=== PATIENT | male | born 1965 | race Caucasian/White ===

== ENCOUNTER 2021-04-04 08:56 | Emergency (ER) | payer BC ==
[2021-04-04] MEDS ORDERED: ASPIRIN 81 MG PO STA (09:10)
[2021-04-04] MEDS ORDERED: LABETALOL SYRINGE 5 MG/ML IVP STA (09:11)
--- NOTE | 2021-04-04 09:14 | ED ---
General Adult HPI - General Chief complaint: Recheck/Abnormal Lab/Rx Stated complaint: High BP Time Seen by Provider: 04/04/21 09:03 Source: patient, RN notes reviewed Mode of arrival: ambulatory Limitations: no limitations - History of Present Illness Initial comments: This is a pleasant 55-year-old male with no significant past medical history. He presents to the emergency department today complaining of palpitations. Patient states he was in his garage last night working a came and he felt a funny heartbeat. Patient states when he woke up this morning he had a recurrence of the palpitations. He ended up going to the walk-in clinic and was sent here for evaluation after he was found to be hypertensive. Patient also had an EKG there which showed nonspecific ST depression. Patient denying any chest pain. The patient is a cigarette smoker. No alcohol abuse. No illicit drug abuse. Patient states she has not been to the physician in over 10 years. No headache, no fever or chills, no changes in vision or hearing, no sore throat or difficulty with speech, no neck pain, no shortness of breath, no abdominal pain, no nausea or vomiting, no changes in urination or bowel movements, no numbness or tingling, no extremity pain, no skin rashes or lesions. - Related Data Home Medications Medication Instructions Recorded Confirmed Ibuprofen [Motrin Ib] 400 mg PO Q8H PRN 04/04/21 04/04/21 Multivitamins, Thera [Multivitamin 1 tab PO HS 04/04/21 04/04/21 (formulary)] Previous Rx's Medication Instructions Recorded Lisinopril [Prinivil] 10 mg PO DAILY #30 tab 04/04/21 Allergies Allergy/AdvReac Type Severity Reaction Status Date / Time No Known Allergies Allergy Verified 04/04/21 09:56 Review of Systems ROS Statement: Those systems with pertinent positive or pertinent negative responses have been documented in the HPI. ROS Other: All systems not noted in ROS Statement are negative. Past Medical History Past Medical History: No Reported History History of Any Multi-Drug Resistant Organisms: None Reported Past Surgical History: Appendectomy Past Psychological History: No Psychological Hx Reported Smoking Status: Current every day smoker Past Alcohol Use History: None Reported Past Drug Use History: None Reported General Exam - General Exam Comments Initial Comments: Nontoxic appearing male in no distress. Vital signs reviewed Limitations: no limitations General appearance: alert, in no apparent distress Head exam: Present: atraumatic, normocephalic, normal inspection Eye exam: Present: normal appearance, PERRL, EOMI. Absent: scleral icterus, con junctival injection, periorbital swelling ENT exam: Present: normal exam, normal oropharynx, mucous membranes moist Neck exam: Present: normal inspection. Absent: tenderness, meningismus, lymphadenopathy Respiratory exam: Present: normal lung sounds bilaterally. Absent: respiratory distress, wheezes, rales, rhonchi, stridor, chest wall tenderness, accessory muscle use Cardiovascular Exam: Present: regular rate, normal rhythm, normal heart sounds. Absent: systolic murmur, diastolic murmur, rubs, gallop, clicks GI/Abdominal exam: Present: soft, normal bowel sounds. Absent: distended, tenderness, guarding, rebound, rigid Extremities exam: Present: normal inspection, full ROM, normal capillary refill. Absent: tenderness, pedal edema, joint swelling, calf tenderness Back exam: Present: normal inspection Neurological exam: Present: alert, oriented X3, CN II-XII intact, normal gait. Absent: altered, abnormal gait, motor sensory deficit Psychiatric exam: Present: normal affect, normal mood. Absent: depressed, agitated, anxious, manic, homicidal ideation, suicidal ideation Skin exam: Present: warm, dry, intact, normal color. Absent: rash, cyanosis, diaphoretic, erythema, urticaria, vesicles, petechiae, pallor, mottled, abrasion Course Vital Signs 04/04/21 04/04/21 04/04/21 08:57 09:25 10:00 Temperature 98.9 F Pulse Rate 95 76 72 Respiratory 18 20 18 Rate Blood Pressure 212/104 216/104 174/107 O2 Sat by Pulse 100 96 97 Oximetry 04/04/21 10:59 Temperature 98.8 F Pulse Rate 77 Respiratory 18 Rate Blood Pressure 164/94 O2 Sat by Pulse 99 Oximetry - Reevaluation(s) Reevaluation #1: 04/04/21 10:33 Medical record is reviewed Symptoms are improved here in the emergency department Patient is informed of results and questions answered Patient in no distress Blood pressure down to 174/107 EKG Findings - EKG Results: EKG: interpreted by ERMD, sinus rhythm, normal axis, normal QRS, normal ST/T, no acute changes (Poor R-wave progression from V1 to V2. Normal intervals. Rate 94) Medical Decision Making - Medical Decision Making Patient found to have minimal ST depression on the EKG from the walk-in clinic. We'll order a cardiac panel here. Patient has had no chest pain but has had palpitations. Aspirin ordered. One dose of labetalol ordered. Patient counseled on findings, Treatment Plan. Counseled on Smoking Cessation. Patient was counseled extensively on the need for follow-up. Again, patient had no chest pain. It sounds as if the patient has had palpitations which brought him to the ER however, it sounds as if he has had hypertension for quite some time. Patient states any time he had been to the physician over the past sev eral years he was told that he had hypertension. It was always attributed to [place] hypertension. Patient in agreement with the treatment plan. All diagnostics explained. All questions answered. The case was discussed in detail with ED attending physician. Presentation, findings, treatment plan discussed in detail. - Lab Data Result diagrams: 04/04/21 09:15 04/04/21 09:15 Lab Results 04/04/21 04/04/21 04/04/21 Range/Units 09:15 09:15 09:15 WBC 9.6 (3.8-10.6) k/uL RBC 5.49 (4.30-5.90) m/uL Hgb 16.5 (13.0-17.5) gm/dL Hct 47.8 (39.0-53.0) % MCV 87.1 (80.0-100.0) fL MCH 30.0 (25.0-35.0) pg MCHC 34.5 (31.0-37.0) g/dL RDW 14.1 (11.5-15.5) % Plt Count 233 (150-450) k/uL MPV 9.3 Neutrophils % 79 % Lymphocytes % 14 % Monocytes % 4 % Eosinophils % 1 % Basophils % 0 % Neutrophils # 7.6 (1.3-7.7) k/uL Lymphocytes # 1.4 (1.0-4.8) k/uL Monocytes # 0.4 (0-1.0) k/uL Eosinophils # 0.1 (0-0.7) k/uL Basophils # 0.0 (0-0.2) k/uL Sodium 137 (137-145) mmol/L Potassium 4.1 (3.5-5.1) mmol/L Chloride 107 (98-107) mmol/L Carbon Dioxide 22 (22-30) mmol/L Anion Gap 8 mmol/L BUN 16 (9-20) mg/dL Creatinine 0.81 (0.66-1.25) mg/dL Est GFR (CKD-EPI)AfAm >90 (>60 ml/min/1.73 sqM) Est GFR (CKD-EPI)NonAf >90 (>60 ml/min/1.73 sqM) Glucose 162 H (74-99) mg/dL Calcium 10.1 (8.4-10.2) mg/dL Magnesium 2.0 (1.6-2.3) mg/dL Total Bilirubin 0.7 (0.2-1.3) mg/dL AST 24 (17-59) U/L ALT 24 (4-49) U/L Alkaline Phosphatase 70 (38-126) U/L Troponin I <0.012 (0.000-0.034) ng/mL NT-Pro-B Natriuret Pep pg/mL Total Protein 7.7 (6.3-8.2) g/dL Albumin 4.6 (3.5-5.0) g/dL 04/04/21 Range/Units 09:15 WBC (3.8-10.6) k/uL RBC (4.30-5.90) m/uL Hgb (13.0-17.5) gm/dL Hct (39.0-53.0) % MCV (80.0-100.0) fL MCH (25.0-35.0) pg MCHC (31.0-37.0) g/dL RDW (11.5-15.5) % Plt Count (150-450) k/uL MPV Neutrophils % % Lymphocytes % % Monocytes % % Eosinophils % % Basophils % % Neutrophils # (1.3-7.7) k/uL Lymphocytes # (1.0-4.8) k/uL Monocytes # (0-1.0) k/uL Eosinophils # (0-0.7) k/uL Basophils # (0-0.2) k/uL Sodium (137-145) mmol/L Potassium (3.5-5.1) mmol/L Chloride (98-107) mmol/L Carbon Dioxide (22-30) mmol/L Anion Gap mmol/L BUN (9-20) mg/dL Creatinine (0.66-1.25) mg/dL Est GFR (CKD-EPI)AfAm (>60 ml/min/1.73 sqM) Est GFR (CKD-EPI)NonAf (>60 ml/min/1.73 sqM) Glucose (74-99) mg/dL Calcium (8.4-10.2) mg/dL Magnesium (1.6-2.3) mg/dL Total Bilirubin (0.2-1.3) mg/dL AST (17-59) U/L ALT (4-49) U/L Alkaline Phosphatase (38-126) U/L Troponin I (0.000-0.034) ng/mL NT-Pro-B Natriuret Pep 167 pg/mL Total Protein (6.3-8.2) g/dL Albumin (3.5-5.0) g/dL Disposition Clinical Impression: Palpitations, Hypertension, poor control, Cigarette smoker Disposition: HOME SELF-CARE Condition: Stable Instructions (If sedation given, give patient instructions): Heart Palpitations (ED), How to Stop Smoking (ED), Chronic Hypertension (ED) Additional Instructions: Follow-up with both the provided primary care physician as well as the commercial manager. You may need further testing as an outpatient. Take a daily aspirin 81 mg per day. Take the blood pressure medication as directed. Follow-up with your regular physician as directed. Return to the ER immediately if any symptoms worsen, new symptoms arise, or any other problems develop. Prescriptions: Lisinopril [Prinivil] 10 mg PO DAILY #30 tab Is patient prescribed a controlled substance at d/c from ED?: No Referrals: Zack Rothman MD [STAFF PHYSICIAN] - 04/07/21 Time of Disposition: 10:39
--- NOTE | 2021-04-04 09:44 | XR ---
EXAMINATION TYPE: XR chest 1V portable DATE OF EXAM: 04/04/2021 COMPARISON: NONE HISTORY: Shortness of breath TECHNIQUE: Frontal and lateral views of the chest are obtained. FINDINGS: Scattered senescent parenchymal changes noted. Hyperinflation compatible with COPD. No evidence for infiltrate. No evidence for atelectasis. Heart size is stable. Mediastinal structures are stable and grossly unremarkable. No evidence for hilar prominence. Degenerative changes dorsal spine. IMPRESSION: 1. No evidence for acute pulmonary disease.
[2021-04-04 10:02] LABS: Basophils % (A) 0 %; Eosinophils # (A) 0.1 k/uL (0-0.7); Eosinophils % (A) 1 %; HCT 47.8 % (39.0-53.0); HGB 16.5 gm/dL (13.0-17.5); Lymphocytes # (A) 1.4 k/uL (1.0-4.8); Lymphocytes % (A) 14 %; MCHC 34.5 g/dL (31.0-37.0); MCV 87.1 fL (80.0-100.0); Mean Platelet Volume 9.3; Monocytes # (A) 0.4 k/uL (0-1.0); Monocytes % (A) 4 %; Neutrophils # (A) 7.6 k/uL (1.3-7.7); Neutrophils % (A) 79 %; Platelet Count 233 k/uL (150-450); RBC 5.49 m/uL (4.30-5.90); RDW 14.1 % (11.5-15.5); WBC 9.6 k/uL (3.8-10.6)
[2021-04-04 10:10] LABS: ALT 24 U/L (4-49); AST 24 U/L (17-59); African American GFR (CKD) >90 (>60 ml/min/1.73 sqM); Albumin 4.6 g/dL (3.5-5.0); Alkaline Phosphatase 70 U/L (38-126); Anion Gap 8 mmol/L; Blood Urea Nitrogen 16 mg/dL (9-20); Calcium 10.1 mg/dL (8.4-10.2); Carbon Dioxide 22 mmol/L (22-30); Chloride 107 mmol/L (98-107); Glucose 162 mg/dL (74-99); Non-African American GFR(CKD) >90 (>60 ml/min/1.73 sqM); Potassium 4.1 mmol/L (3.5-5.1); Sodium 137 mmol/L (137-145); Total Bilirubin 0.7 mg/dL (0.2-1.3); Total Protein 7.7 g/dL (6.3-8.2)
[2021-04-04 10:12] VITALS: RESP 18
[2021-04-04 11:01] VITALS: BP 164/94; PULSE 77; TEMP 98.8
== END 2021-04-04 10:59 | disposition home or self-care (01) ==
LOC: EC 08:56
DX: R00.2 Palpitations (principal); I10 Essential (primary) hypertension; F17.210 Nicotine dependence, cigarettes, uncomplicated
CPT/HCPCS: 36415; 71045; 80053; 83735; 83880; 84484; 85025; 93005; 96374; 99285

== ENCOUNTER → 2021-04-21 | Outpatient (CLI) | payer BC ==
[2021-04-21 19:38] LABS: ALT 21 U/L (10-49); AST 16 U/L (14-35); African American GFR (CKD) 111.3 (60.0-200.0); Albumin 4.7 g/dL (3.8-4.9); Albumin/Globulin Ratio 1.94 (1.60-3.17); Alkaline Phosphatase 67 U/L (41-126); BUN/Creat Ratio 16.28 Ratio (12.00-20.00); Blood Urea Nitrogen 14.8 mg/dL (9.0-27.0); Calcium 9.8 mg/dL (8.7-10.3); Carbon Dioxide 22.6 mmol/L (20.0-27.5); Chloride 101 mmol/L (96-109); Chol/HDL Ratio 6.36 Ratio; Globulin 2.4 g/dL (1.6-3.3); Glucose 146 mg/dL (70-110); LDL Cholesterol,Calculated 106.3 mg/dL (0.0-131.0); Potassium 4.4 mmol/L (3.5-5.5); Sodium 138 mmol/L (135-145); Total Protein 7.2 g/dL (6.2-8.2)
[2021-04-24 08:19] LABS: Urine Creatinine, 24 Hr 0.7 gm/24h (1.0-2.0)
== END | disposition home or self-care (01) ==
LOC: LABWHC1 11:42
PROVIDERS: ATTEND Physician Assistant
DX: I10 Essential (primary) hypertension (principal)
CPT/HCPCS: 36415; 80053; 80061; 82533; 83835; 84439; 84443; 84481

== ENCOUNTER 2021-05-10 14:33 | Observation (INO) | payer BC ==
[2021-05-10] MEDS ORDERED: SODIUM CHLORIDE 0.9% 500 ML 500 ML IV STA (14:55)
[2021-05-10 15:13] LABS: Basophils # (A) 0.1 k/uL (0-0.2); Basophils % (A) 1 %; Eosinophils # (A) 0.1 k/uL (0-0.7); Eosinophils % (A) 1 %; HCT 49.7 % (39.0-53.0); HGB 17.2 gm/dL (13.0-17.5); Lymphocytes % (A) 11 %; MCH 29.8 pg (25.0-35.0); MCHC 34.5 g/dL (31.0-37.0); MCV 86.4 fL (80.0-100.0); Monocytes # (A) 0.3 k/uL (0-1.0); Monocytes % (A) 3 %; Neutrophils # (A) 7.8 k/uL (1.3-7.7); Neutrophils % (A) 83 %; Platelet Count 244 k/uL (150-450); RBC 5.76 m/uL (4.30-5.90); RDW 13.7 % (11.5-15.5); WBC 9.3 k/uL (3.8-10.6)
--- NOTE | 2021-05-10 15:20 | XR ---
EXAMINATION TYPE: XR chest 2V DATE OF EXAM: 05/10/2021 COMPARISON: Chest x-ray April 04, 2021 HISTORY: History of hypertension with weakness TECHNIQUE: Frontal and lateral views of the chest are obtained. FINDINGS: There is no focal air space opacity, pleural effusion, or pneumothorax seen. The cardiac silhouette size remains within normal limits. Overlying EKG leads current study. Multilevel spurring in thoracic spine. IMPRESSION: No acute process. No significant change from prior.
[2021-05-10 15:22] LABS: ALT 22 U/L (4-49); AST 23 U/L (17-59); African American GFR (CKD) >90 (>60 ml/min/1.73 sqM); Albumin 4.8 g/dL (3.5-5.0); Alkaline Phosphatase 65 U/L (38-126); Anion Gap 8 mmol/L; Blood Urea Nitrogen 10 mg/dL (9-20); Calcium 9.8 mg/dL (8.4-10.2); Carbon Dioxide 23 mmol/L (22-30); Chloride 107 mmol/L (98-107); Glucose 133 mg/dL (74-99); Magnesium 2.1 mg/dL (1.6-2.3); Non-African American GFR(CKD) >90 (>60 ml/min/1.73 sqM); Potassium 3.9 mmol/L (3.5-5.1); Sodium 138 mmol/L (137-145); Total Bilirubin 0.8 mg/dL (0.2-1.3); Total Protein 7.9 g/dL (6.3-8.2)
[2021-05-10 15:39] LABS: Partial Thromboplastin Time 25.7 sec (22.0-30.0); Prothrombin Time 10.8 sec (9.0-12.0)
--- NOTE | 2021-05-10 15:43 | ED ---
General Adult HPI - General Chief complaint: Recheck/Abnormal Lab/Rx Stated complaint: Callie BP Time Seen by Provider: 05/10/21 14:41 Source: patient, RN notes reviewed, old records reviewed Mode of arrival: ambulatory Limitations: no limitations - History of Present Illness Initial comments: 55-year-old male presenting for evaluation of elevated blood pressure. Patient had recent medication change including increase in amlodipine and Benzapril. He denies focal numbness or weakness. Denies central chest pain no dyspnea. No abdominal pain. Patient states he does feel little bit off but is unable to exactly indicate what this means. He had some chills without measured fever. No vomiting. - Related Data Home Medications Medication Instructions Recorded Confirmed Multivitamins, Thera [Multivitamin 1 tab PO HS 04/04/21 05/10/21 (formulary)] Aspirin EC [Ecotrin Low Dose] 81 mg PO HS 05/10/21 05/10/21 Lisinopril [Prinivil] 10 mg PO ONCE 05/10/21 05/10/21 amLODIPine BESYLATE/BENAZEPRIL 1 cap PO HS 05/10/21 05/10/21 [Lotrel 10-40 MG] amLODIPine BESYLATE/BENAZEPRIL 1 cap PO ONCE 05/10/21 05/10/21 [Lotrel 5-40 MG] Allergies Allergy/AdvReac Type Severity Reaction Status Date / Time No Known Allergies Allergy Verified 05/10/21 16:18 Review of Systems ROS Statement: Those systems with pertinent positive or pertinent negative responses have been documented in the HPI. ROS Other: All systems not noted in ROS Statement are negative. Past Medical History Past Medical History: Hypertension History of Any Multi-Drug Resistant Organisms: None Reported Past Surgical History: Appendectomy Past Psychological History: No Psychological Hx Reported Smoking Status: Current every day smoker Past Alcohol Use History: Rare Past Drug Use History: None Reported General Exam Limitations: no limitations General appearance: alert, in no apparent distress Head exam: Present: atraumatic, normocephalic Eye exam: Present: normal appearance, PERRL ENT exam: Present: normal exam Neck exam: Present: normal inspection. Absent: tenderness, meningismus Respiratory exam: Present: normal lung sounds bilaterally. Absent: respiratory distress, wheezes Cardiovascular Exam: Present: regular rate, normal rhythm GI/Abdominal exam: Present: soft. Absent: distended, tenderness Extremities exam: Present: normal inspection, normal capillary refill. Absent: pedal edema, calf tenderness Neurological exam: Present: alert, oriented X3, CN II-XII intact. Absent: motor sensory deficit Psychiatric exam: Present: normal affect, normal mood Skin exam: Present: warm, dry, intact. Absent: cyanosis, diaphoretic Course Vital Signs 05/10/21 05/10/21 05/10/21 14:33 15:13 17:00 Temperature 98.8 F Pulse Rate 86 91 95 Respiratory 18 16 16 Rate Blood Pressure 164/94 199/123 182/114 O2 Sat by Pulse 96 99 99 Oximetry EKG Findings - EKG Comments: EKG Findings:: EKG: Sinus rhythm and incomplete right bundle-branch block rate of 91, ID interval 176, QRS duration 110, QTC [address] segment elevation however there may be some slight depression in the lateral leads. Similar compared to prior. Medical Decision Making - Medical Decision Making 55-year-old male presenting for evaluation of hypertension. This was significantly elevated at home. Patient feels a little off but is unable to state complaints of headache, no chest pain, no abdominal pain. Initial blood pressure is significantly elevated. He's given IV fluids and IV hydralazine is all laboratory studies are being obtained. His chest x-ray, EKG and laboratory testing is unremarkable. His blood pressures persistently elevated 200/110. He is given a dose of labetalol in the emergency Department is amlodipine is r eordered. He is started on lisinopril in the morning. He will be admitted for close blood pressure monitoring for the significantly elevated both systolic and diastolic pressures. Case discussed with Shani lemus for [facility] hospitalists. - Lab Data Result diagrams: 05/10/21 15:01 05/10/21 15:01 Lab Results 05/10/21 05/10/21 05/10/21 Range/Units 15: 15:01 15:01 WBC 9.3 (3.8-10.6) k/uL RBC 5.76 (4.30-5.90) m/uL Hgb 17.2 (13.0-17.5) gm/dL Hct 49.7 (39.0-53.0) % MCV 86.4 (80.0-100.0) fL MCH 29.8 (25.0-35.0) pg MCHC 34.5 (31.0-37.0) g/dL RDW 13.7 (11.5-15.5) % Plt Count 244 (150-450) k/uL MPV 9.0 Neutrophils % 83 % Lymphocytes % 11 % Monocytes % 3 % Eosinophils % 1 % Basophils % 1 % Neutrophils # 7.8 H (1.3-7.7) k/uL Lymphocytes # 1.0 (1.0-4.8) k/uL Monocytes # 0.3 (0-1.0) k/uL Eosinophils # 0.1 (0-0.7) k/uL Basophils # 0.1 (0-0.2) k/uL PT 10.8 (9.0-12.0) sec INR 1.0 (<1.2) APTT 25.7 (22.0-30.0) sec Sodium 138 (137-145) mmol/L Potassium 3.9 (3.5-5.1) mmol/L Chloride 107 (98-107) mmol/L Carbon Dioxide 23 (22-30) mmol/L Anion Gap 8 mmol/L BUN 10 (9-20) mg/dL Creatinine 0.73 (0.66-1.25) mg/dL Est GFR (CKD-EPI)AfAm >90 (>60 ml/min/1.73 sqM) Est GFR (CKD-EPI)NonAf >90 (>60 ml/min/1.73 sqM) Glucose 133 H (74-99) mg/dL Plasma Lactic Acid Yong (0.7-2.0) mmol/L Calcium 9.8 (8.4-10.2) mg/dL Magnesium 2.1 (1.6-2.3) mg/dL Total Bilirubin 0.8 (0.2-1.3) mg/dL AST 23 (17-59) U/L ALT 22 (4-49) U/L Alkaline Phosphatase 65 (38-126) U/L Troponin I (0.000-0.034) ng/mL Total Protein 7.9 (6.3-8.2) g/dL Albumin 4.8 (3.5-5.0) g/dL 05/10/21 05/10/21 Range/Units 15:01 15:01 WBC (3.8-10.6) k/uL RBC (4.30-5.90) m/uL Hgb (13.0-17.5) gm/dL Hct (39.0-53.0) % MCV (80.0-100.0) fL MCH (25.0-35.0) pg MCHC (31.0-37.0) g/dL RDW (11.5-15.5) % Plt Count (150-450) k/uL MPV Neutrophils % % Lymphocytes % % Monocytes % % Eosinophils % % Basophils % % Neutrophils # (1.3-7.7) k/uL Lymphocytes # (1.0-4.8) k/uL Monocytes # (0-1.0) k/uL Eosinophils # (0-0.7) k/uL Basophils # (0-0.2) k/uL PT (9.0-12.0) sec INR (<1.2) APTT (22.0-30.0) sec Sodium (137-145) mmol/L Potassium (3.5-5.1) mmol/L Chloride (98-107) mmol/L Carbon Dioxide (22-30) mmol/L Anion Gap mmol/L BUN (9-20) mg/dL Creatinine (0.66-1.25) mg/dL Est GFR (CKD-EPI)AfAm (>60 ml/min/1.73 sqM) Est GFR (CKD-EPI)NonAf (>60 ml/min/1.73 sqM) Glucose (74-99) mg/dL Plasma Lactic Acid Yong 1.7 (0.7-2.0) mmol/L Calcium (8.4-10.2) mg/dL Magnesium (1.6-2.3) mg/dL Total Bilirubin (0.2-1.3) mg/dL AST (17-59) U/L ALT (4-49) U/L Alkaline Phosphatase (38-126) U/L Troponin I <0.012 (0.000-0.034) ng/mL Total Protein (6.3-8.2) g/dL Albumin (3.5-5.0) g/dL Disposition Clinical Impression: Hypertension Disposition: ADMITTED IP TO THIS HOSP Condition: Stable Is patient prescribed a controlled substance at d/c from ED?: No Referrals: Zack Rothman MD [Primary Care Provider] - 1-2 days Decision to Admit Reason: Admit from EC Decision Date: 05/10/21 Decision Time: 18:20
[2021-05-10] MEDS ORDERED: hydrALAZINE HCL 20 MG/ML 1 ML VIAL IVP STA (16:17)
[2021-05-10] MEDS ORDERED: LABETALOL 5 MG/ML VIAL MDV IVP STA (17:53)
[2021-05-10] MEDS ORDERED: SODIUM CHLORIDE 0.9% 1,000 ML IV SCH (18:00)
[2021-05-10] MEDS ORDERED: NICOTINE 14MG/24HR PATCH TRANSDERM STA (18:05)
[2021-05-10] MEDS ORDERED: LORazepam 1 MG TAB PO STA (18:06)
[2021-05-10] MEDS ORDERED: LORazepam 0.5 MG TAB PO PRN (18:35)
[2021-05-10] MEDS ORDERED: NALOXONE 0.4 MG/ML 1 ML VIAL IV PRN (18:35)
[2021-05-10] MEDS ORDERED: ACETAMINOPHEN TAB 325 MG TAB PO PRN (18:35)
[2021-05-10] MEDS ORDERED: MULTIVITAMINS, THERA 1 EACH TAB PO SCH (21:00)
[2021-05-10] MEDS ORDERED: ASPIRIN 81 MG PO SCH (21:00)
[2021-05-10] MEDS ORDERED: amLODIPine 10 MG TAB PO SCH (21:00)
[2021-05-10 22:41] VITALS: RESP 18
[2021-05-11] MEDS: hydrALAZINE HCL 20 MG/ML 1 ML VIAL IVP PRN ×2 (00:02→08:28)
[2021-05-11 08:21] VITALS: TEMP 98.1
[2021-05-11] MEDS ORDERED: lisinopriL 10 MG TAB PO SCH (09:00)
[2021-05-11 09:42] VITALS: BP 158/86; PULSE 89
[2021-05-11] MEDS ORDERED: AMLODIPINE BESYLATE PO SCH (10:00)
[2021-05-11] MEDS ORDERED: BENAZEPRIL PO SCH (10:00)
--- NOTE | 2021-05-11 10:12 | P.HPIM ---
History of Present Illness 55-year-old pleasant male came in with concerns of elevated blood pressure patient check his blood pressure was anxious when he checked his blood pressure and is found to have red pressure of around 200/110 came to ER subsequently ad karina was medicated with metastases to multiple medications including headache IV hydralazine patient was given the his amlodipine as well as lisinopril last night. Patient blood pressure is presently in 150 systolic. Patient denied any chest pain, denied any shortness of breath, denied any abdominal pain denied any blurry vision. Patient amlodipine dose was increased to 10 mg from 5 mg and is on trazodone 40 mg. This increase was about a day ago. REVIEW OF SYSTEMS: CONSTITUTIONAL: No fever, no malaise, no fatigue. HEENT: No recent visual problems or hearing problems. Denied any sore throat. CARDIOVASCULAR: No chest pain, orthopnea, PND, no palpitations, no syncope. PULMONARY: No shortness of breath, no cough, no hemoptysis. GASTROINTESTINAL: No diarrhea, no nausea, no vomiting, no abdominal pain. NEUROLOGICAL: No headaches, no weakness, no numbness. HEMATOLOGICAL: Denies any bleeding or petechiae. GENITOURINARY: Denies any burning micturition, frequency, or urgency. MUSCULOSKELETAL/RHEUMATOLOGICAL: Denies any joint pain, swelling, or any muscle pain. ENDOCRINE: Denies any polyuria or polydipsia. The rest of the 14-point review of systems is negative. PHYSICAL EXAMINATION: GENERAL: The patient is alert and oriented x3, not in any acute distress. Well developed, well nourished. HEENT: Pupils are round and equally reacting to light. EOMI. No scleral icterus. No conjunctival pallor. Normocephalic, atraumatic. No pharyngeal erythema. No thyromegaly. CARDIOVASCULAR: S1 and S2 present. No murmurs, rubs, or gallops. PULMONARY: Chest is clear to auscultation, no wheezing or crackles. ABDOMEN: Soft, nontender, nondistended, normoactive bowel sounds. No palpable organomegaly. MUSCULOSKELETAL: No joint swelling or deformity. EXTREMITIES: No cyanosis, clubbing, or pedal edema. NEUROLOGICAL: Gross neurological examination did not reveal any focal deficits. SKIN: No rashes. Assessment and plan -Essential hypertension, accelerated hypertension/hypertensive urgency: Patient elevated blood pressures probably because of his anxiety. Extensive counseling regarding appropriate way to check the blood pressure and blood pressure management was done. A low-dose of diuretic pill will be added with the potassium supplementation and basic metabolic profile in 3 days. -Pre diabetes with a hemoglobin A1c of 6.3 -Obesity: Patient is trying to lose weight -Nicotine use: Patient is trying to quit smoking as well counseling was provided regarding this Patient will be be discharged today Past Medical History Past Medical History: Hypertension History of Any Multi-Drug Resistant Organisms: None Reported Past Surgical History: Appendectomy Past Anesthesia/Blood Transfusion Reactions: No Reported Reaction Past Psychological History: No Psychological Hx Reported Smoking Status: Current every day smoker Past Alcohol Use History: Rare Past Drug Use History: None Reported Medications and Allergies Home Medications Medication Instructions Recorded Confirmed Type Multivitamins, Thera [Multivitamin 1 tab PO HS 04/04/21 05/10/21 History (formulary)] Aspirin EC [Ecotrin Low Dose] 81 mg PO HS 05/10/21 05/10/21 History amLODIPine BESYLATE/BENAZEPRIL 1 cap PO HS 05/10/21 05/10/21 History [Lotrel 10-40 MG] Chlorthalidone [Hygroton] 25 mg PO DAILY #30 tab 05/11/21 Rx Potassium Chloride ER [K-Dur 10] 10 meq PO DAILY #30 tab 05/11/21 Rx Allergies Allergy/AdvReac Type Severity Reaction Status Date / Time No Known Allergies Allergy Verified 05/10/21 16:18 Physical Exam Vitals: Vital Signs Temp Pulse Pulse Resp BP BP Pulse Ox 05/11/21 09:42 89 158/86 05/11/21 08:00 18 05/11/21 07:00 98.1 F 90 18 171/94 98 05/11/21 02:08 96 169/86 98 05/11/21 00:05 98.0 F 92 18 200/93 98 05/10/21 21:44 98.6 F 85 18 204/119 100 05/10/21 19:06 72 16 162/98 99 05/10/21 17:00 95 16 182/114 99 05/10/21 15:13 91 16 199/123 99 05/10/21 14:33 98.8 F 86 18 164/94 96 Intake and Output 05/10/21 05/11/21 05/11/21 22:59 06:59 14:59 Other: # Voids 1 1 Weight 122.47 kg Results CBC & Chem 7: 05/10/21 15:01 05/10/21 15:01 Labs: Abnormal Lab Results - Last 24 Hours (Table) 05/10/21 05/10/21 05/10/21 Range/Units 15:01 15:01 15:01 Neutrophils # 7.8 H (1.3-7.7) k/uL Glucose 133 H (74-99) mg/dL Hemoglobin A1c 6.3 H (0.0-6.0) % Thrombosis Risk Factor Assmnt - Choose All That Apply Each Factor Represents 1 point: Age 41-60 years, Obesity (BMI >25) Thrombosis Risk Factor Assessment Total Risk Factor Score: 2 Thrombosis Risk Factor Assessment Level: Low Risk
--- NOTE | 2021-05-11 10:13 | P.DS ---
Providers Date of admission: 05/10/21 18:35 Attending physician: Mono Nina Primary care physician: Zack Rothman MD Hospital Course: Refer to my history of present illness for further details Patient Condition at Discharge: Stable Plan - Discharge Summary New Discharge Prescriptions: New Potassium Chloride ER [K-Dur 10] 10 meq PO DAILY #30 tab Chlorthalidone [Hygroton] 25 mg PO DAILY #30 tab Continue Multivitamins, Thera [Multivitamin (formulary)] 1 tab PO HS Aspirin EC [Ecotrin Low Dose] 81 mg PO HS amLODIPine BESYLATE/BENAZEPRIL [Lotrel 10-40 MG] 1 cap PO HS Discontinued amLODIPine BESYLATE/BENAZEPRIL [Lotrel 5-40 MG] 1 cap PO ONCE Lisinopril [Prinivil] 10 mg PO ONCE Discharge Medication List Multivitamins, Thera [Multivitamin (formulary)] 1 tab PO HS 04/04/21 [History] Aspirin EC [Ecotrin Low Dose] 81 mg PO HS 05/10/21 [History] amLODIPine BESYLATE/BENAZEPRIL [Lotrel 10-40 MG] 1 cap PO HS 05/10/21 [History] Chlorthalidone [Hygroton] 25 mg PO DAILY #30 tab 05/11/21 [Rx] Potassium Chloride ER [K-Dur 10] 10 meq PO DAILY #30 tab 05/11/21 [Rx] Follow up Appointment(s)/Referral(s): Zack Rothman MD [Primary Care Provider] - 3 Days Ambulatory/Diagnostic Orders: Basic Metabolic Panel [LAB.AMB] Time Frame: 3 Days, Location: None Selected Discharge Disposition: HOME SELF-CARE
[2021-05-11] MEDS ORDERED: CHLORTHALIDONE 25 MG TAB PO SCH (10:15)
== END 2021-05-11 10:33 | disposition home or self-care (01) ==
LOC: EC 14:33 → 6NMEDSUR 18:35
PROVIDERS: ADMIT Hospitalist; ATTEND Hospitalist
DX: I10 Essential (primary) hypertension (principal); I16.0 Hypertensive urgency; R73.03 Prediabetes; E66.9 Obesity, unspecified; Z68.35 Body mass index [BMI] 35.0-35.9, adult; F17.200 Nicotine dependence, unspecified, uncomplicated; Z71.6 Tobacco abuse counseling; Z79.82 Long term (current) use of aspirin; Z79.899 Other long term (current) drug therapy; Z90.49 Acquired absence of other specified parts of digestive tract
CPT/HCPCS: 96376; 96361; 96374; 96375; 99285; 36415; 93005; 80053; 83605; 83735; 84484; 85025; 85610; 85730; 83036; 71046; G0378 ×2; S4990; J0360 ×2

== ENCOUNTER → 2021-07-09 | Outpatient (CLI) | payer BC ==
--- NOTE | 2021-07-09 13:50 | CONS ---
CONSULTATION DATE OF SERVICE: 07/09/2021 This 55-year-old gentleman has been evaluated in Sleep Center for possible obstructive sleep apnea-hypopnea syndrome. HISTORY OF PRESENT ILLNESS/SLEEP-WAKE EVALUATION: The patient works an afternoon shift. His sleep schedule on weekdays is from 2:30 a.m. until 10:30 a.m., on weekends from 3 a.m. until 11 a.m. No problems with falling asleep. No TV in bedroom. He usually sleeps on the side position. He has loud snoring and witnessed episodes of stopped breathing during sleep. He grinds his teeth. Occasionally he has restless leg symptoms. During the night he often has episodes of kicking. No history of hypnagogic hallucinations, sleep paralysis or cataplexy. [place] Sleepiness Scale is on the border at 9. The patient takes one nap at 1 p.m. PAST MEDICAL HISTORY: Positive for hypertension. PAST SURGICAL HISTORY: Appendectomy. SOCIAL HISTORY: Negative for smoking or using alcohol. MEDICATIONS: Amlodipine/benazepril 10/40 mg once a day, chlorthalidone 25 mg once a day, potassium supplement. REVIEW OF SYSTEMS: Awakenings from sleep multiple times with nocturia, snoring, sleepiness. No fevers. No double vision. No recent chest pain. No shortness of breath. No abdominal pain. No bleeding episodes. No blood in the urine. No seizure episodes. PHYSICAL EXAMINATION: GENERAL: Pleasant gentleman without distress. VITAL SIGNS: BP 129/82, HR about 100, RR 16, height 6 feet 1 inch, weight 248.6, temperature 97.0, oxygen saturation at room air 100%. Body mass index 32.8. HEENT: PERRLA, EOMI, evaluation of oropharynx showed tongue protrudes midline. Extremely low position of soft palate; Mallampati IV. NECK: Supple, no JVD. Thyroid is not palpable. Neck measures 18 inches in circumference. LUNGS: Clear to percussion and to auscultation. Good air exchange. No wheezing or rhonchi. HEART: S1, S2 regular. No murmurs, gallops, or rubs. ABDOMEN: Soft and nontender. Bowel sounds are present. No organomegaly appreciated. EXTREMITIES: No clubbing or cyanosis. FAMILY AND CONSUMER EDUCATION TEACHER: Awake, alert, and oriented X3. Cranial nerves 2 to 7 intact. There is no fasciculation or atrophy. noted. No focal deficits observed. IMPRESSION: 1. Loud snoring, witnessed episodes of stopped breathing during sleep, extremely low position of soft palate, Mallampati IV, wide neck, 18 inches in circumference; obstructive sleep apnea-hypopnea syndrome. 2. Obesity; body mass index 32.8. 3. Hypertension. 4. History of kicking at night; possibly periodic limb movements. 5. Status post appendectomy. PLAN: 1. Home sleep apnea test for evaluation of patient's breathing during sleep. 2. CPAP/BiPAP titration if sleep study confirms obstructive sleep apnea-hypopnea syndrome. 3. Preferable position during sleep on the side. 4. No driving if patient feels any sleepiness. 5. I will see patient for follow up visit to explain results of testing and following plan. Thank you very much for referring this patient for consultation. Sincerely, Ayan Nelson MD, PhD, FAASM Diplomat of [employer] Sleep Medicine Board of [place] [employer] Medicine Supervisor Properties of [facility] [place] MMODL / JOSEPHN: [id number] /
== END ==
LOC: SLEEP 11:40
PROVIDERS: ATTEND Internal Medicine
DX: G47.33 Obstructive sleep apnea (adult) (pediatric) (principal); I10 Essential (primary) hypertension; Z90.49 Acquired absence of other specified parts of digestive tract; E66.9 Obesity, unspecified; Z68.32 Body mass index [BMI] 32.0-32.9, adult; Z79.899 Other long term (current) drug therapy
CPT/HCPCS: 99211

== ENCOUNTER → 2021-10-30 | Outpatient (CLI) | payer BC ==
--- NOTE | 2021-10-30 11:51 | P.PN ---
Subjective DATE: 10/30/2021 FOLLOW UP VISIT. Patient with obstructive sleep apnea hypopnea syndrome return to sleep center for follow-up visit. Recently patient had sleep study which documented obstructive sleep apnea hypopnea syndrome. Patient was initiated on PAP therapy and today is first visit after treatment was started. I discussed with patient results of sleep studies in details Patient was able to use PAP equipment every night for the whole night. Mask has been changed from full face mask to nasal pillow mask and with that mask patient feels much better. The patient does not have significant problems with the mask, PAP pressure and humidification in the present time. [place] sleepiness scale is 5, after starting using CPAP equipment patient does not need to take any additional naps.. I checked information from PAP unit. PAP unit pressure 6-14, average 8.7 cm H2O. Usage is 100 % for more then 4 hours, average 7.5 hours per night. Leak is 17.1 l/m, which is in acceptable range. Apnea Hypopnea Index is 4.0, which is normal. MEDICATIONS:1. Amlodipine/benazepril 10/40 mg once a day 2. Chlorthalidone 25 mg once a day During physical exam: GENERAL: A pleasant patient without any distress. VITAL SIGNS: BP 127/82, HR 84, RR 12, weight 240.0, temperature 96.1, oxygen saturation at room air 98%. HEENT: PERRLA, EOMI.low position of soft palate, Mallapati 4 . NECK: Supple. No JVD. LUNGS: Clear to percussion and to auscultation. Good air exchange. No wheezing or rhonchi. HEART: S1, S2 regular. ABDOMEN: Soft and nontender. Slightly obese EXTREMITIES: No clubbing or cyanosis. RAIL PROJECT ENGINEER: Awake, alert, and oriented x3. No focal deficit. Impressions: 1. Obstructive sleep apnea-hypopnea syndrome. Patient demonstrated great compliance with treatment, benefiting from treatment. 2. Hypertension. 3. Mild obesity, for last several months patient lost around 50 pounds according to him. 4. Status post appendectomy. Plan: 1. Continue using PAP equipment every night for the whole night. 2. To change air filter at least 1-2 times per month. 3. PAP unit should stay lower then position of the head. 4. Advised patient to remove all remaining water from humidifier canister daily and make it dry after each usage. Refill canister with fresh distilled water b efore each usage. 5. Sleep hygiene with regular time in bed for at least 8 hours. 6. Precautions related to driving. No driving if feel any sleepiness. 7. I will maintain prescription for PAP supplies including mask, tube, filters. 8. Follow up visit in 6 months or earlier if patient has any problems. 9. Watching and losing weight. Thank you very much for allowing me to participate in the management of your patient. Ayan Nelson MD, PhD, FAASM. Diplomat of [place] [employer], Sleep Medicine Board by [place] [employer] Medicine Human Resources Compensation Analyst of [facility] [place]
== END ==
LOC: SLEEP 11:07
PROVIDERS: ATTEND Internal Medicine
DX: G47.33 Obstructive sleep apnea (adult) (pediatric) (principal); I10 Essential (primary) hypertension; E66.9 Obesity, unspecified; Z90.49 Acquired absence of other specified parts of digestive tract; Z99.89 Dependence on other enabling machines and devices

== ENCOUNTER → 2021-12-18 | Outpatient (CLI) | payer BC ==
--- NOTE | 2021-12-18 11:50 | CA ---
Exercise Stress Test Report Name: Joshua Guerrero Exam Date: 12/18/2021 09:11 Exam Location: [place] Stress Ht (in): 73 Wt (lb): 235 BSA: 2.30 Ordering Phys: Radha Rothman MD Referring Phys: RADHA ROTHMAN,, Technologist: Erik Vasquez Age: 56 Gender: M : 1965 Procedure CPT: Indications: I10 htn R07.9 chest pain ICD-10 Codes: Patient History: Hypertension Medications: Meds past 24 hrs: Pretest Chest Pain: STRESS TEST Mason Protocol Exercise Duration (min:sec): 10:[address] Depressions (mm): Angina Score: Gant Score: Resting HR (bpm): 79 Peak HR (bpm): 149 Resting BP (mmHg): 126 / 89 Peak BP (mmHg): 168 / 86 MPHR: 166 Target HR: 141 % MPHR: 90 METS: 12.1 Total Dose: Peak Dose: Atropine: Double Product: 33732 BP Response: Stress Termination: Reached target heart rate Stress Symptoms: No chest pain or symptoms Stress Summary: ECG ANALYSIS Resting ECG: Stress ECG: CONCLUSIONS Excellent exercise tolerance Normal EKG in response to exercise Dr. Patrice Gomez MD (Electronically Signed) Final Date: 18 December 2021 11:49
== END | disposition home or self-care (01) ==
LOC: RADNMMAIN 08:48
PROVIDERS: ATTEND Family Medicine
DX: I10 Essential (primary) hypertension (principal); R07.9 Chest pain, unspecified
CPT/HCPCS: 93017

== ENCOUNTER → 2022-05-07 | Outpatient (CLI) | payer BC ==
--- NOTE | 2022-05-07 12:10 | P.PN ---
Subjective DATE: 05/07/2022 FOLLOW UP VISIT. Patient with obstructive sleep apnea hypopnea syndrome return to sleep center for follow-up visit. Information from previous visit have been reviewed. Patient is using PAP equipment every night for the whole night. The patient does not have significant problems with the mask, PAP unit and humidification. [place] sleepiness scale is 3, which is normal. I checked information from PAP unit and explaining to the patient. PAP unit pressure 6-14, average 8.8 cm H2O. Usage is 100 % for more then 4 hours, average 7 hours per night. Leak is 16 l/m, which is in acceptable range. Apnea Hypopnea Index is 2.1, which is normal. MEDICATIONS:1. Amlodipine/benazepril 10/40 mg once a day 2. Chlorthalidone 25 mg once a day 3. Aspirin 81 mg once a day 4. Potassium supplement During physical exam: GENERAL: A pleasant patient without any distress. VITAL SIGNS: BP 142/92, HR 72, RR 16, weight 261, temperature 98.1, oxygen saturation at room air 98 % . HEENT: PERRLA, EOMI.low position of soft palate, Mallapati 4 . NECK: Supple. No JVD. LUNGS: Clear to percussion and to auscultation. Good air exchange. No wheezing or rhonchi. HEART: S1, S2 regular. ABDOMEN: Soft and nontender. Slightly obese EXTREMITIES: No clubbing or cyanosis. SENIOR CLINICAL DATA COORDINATOR: Awake, alert, and oriented x3. No focal deficit. Impressions: 1. Obstructive sleep apnea-hypopnea syndrome. Patient demonstrated great compliance with treatment, benefiting from treatment. 2. Obesity, patient increased his weight on 20 pounds, body mass index 33.9. 3. Hypertension. 4. Status post appendectomy. Plan: 1. Continue using PAP equipment every night for the whole night. 2. To change air filter at least 1-2 times per month. 3. PAP unit should stay lower then position of the head. 4. Advised patient to remove all remaining water from humidifier canister daily and make it dry after each usage. Refill canister with fresh distilled water before each usage. 5. Sleep hygiene with regular time in bed for at least 8 hours. 6. Precautions related to driving. No driving if feel any sleepiness. 7. I will maintain prescription for PAP supplies including mask, tube, filters. 8. Watching and losing weight. 9. Follow up visit in 6 months or earlier if patient has any problems. Thank you very much for allowing me to participate in the management of your patient. Ayan Nelson MD, PhD, FAASM. Diplomat of [place] Board of Sleep Medicine, Sleep Medicine Board by [place] Board of Internal Medicine Transfer Engineer of [facility] [place]
== END ==
LOC: SLEEP 11:42
PROVIDERS: ATTEND Internal Medicine
DX: G47.33 Obstructive sleep apnea (adult) (pediatric) (principal); E66.9 Obesity, unspecified; Z68.33 Body mass index [BMI] 33.0-33.9, adult; I10 Essential (primary) hypertension; Z79.899 Other long term (current) drug therapy; Z90.49 Acquired absence of other specified parts of digestive tract; Z99.89 Dependence on other enabling machines and devices; Z48.815 Encounter for surgical aftercare following surgery on the digestive system; Z79.82 Long term (current) use of aspirin
CPT/HCPCS: 99212

== ENCOUNTER → 2022-12-17 | Outpatient (CLI) | payer BC ==
--- NOTE | 2022-12-17 12:15 | P.PN ---
Subjective DATE: 12/17/2022 FOLLOW UP VISIT. Patient with obstructive sleep apnea hypopnea syndrome return to sleep center for follow-up visit. Information from previous visit have been reviewed. Patient is using PAP equipment every night for the whole night, getting PAP supplies in time. The patient does not have significant problems with the mask, PAP unit and humidification. [place] sleepiness scale is 2, which is normal. I checked information from PAP unit and discussed it with patient in details. PAP unit pressure 6-14, average 8.9 cm H2O. Usage is 100 % for more then 4 hours, average 7.5 hours per night. Leak is 8.6 l/m, which is in acceptable range. Apnea Hypopnea Index is 1.6, which is normal. MEDICATIONS:1. Amlodipine/benazepril 10-40 mg once a day 2. Chlorthalidone 25 mg once a day During physical exam: GENERAL: A pleasant patient without any distress. VITAL SIGNS: BP 129/83, HR 82, RR 16 , weight 267, temperature 97.7, oxygen saturation at room air 100 % . HEENT: PERRLA, EOMI.low position of soft palate, Mallapati 4 . NECK: Supple. No JVD. LUNGS: Clear to percussion and to auscultation. Good air exchange. No wheezing or rhonchi. HEART: S1, S2 regular. ABDOMEN: Soft and nontender.[] EXTREMITIES: No clubbing or cyanosis. WET WASH ASSEMBLER: Awake, alert, and oriented x3. No focal deficit. Impressions: 1. Obstructive sleep apnea-hypopnea syndrome. Patient demonstrated great compliance with treatment, benefiting from treatment. 2. Obesity, patient increased weight 196 pounds comparing with previous visit, body mass index 35.2. 3. Hypertension. 4. Status post appendectomy. Plan: 1. Continue using PAP equipment every night for the whole night. 2. To change air filter at least 1-2 times per month. 3. PAP unit should stay lower then position of the head. 4. Advised patient to remove all remaining water from humidifier canister daily and make it dry after each usage. Refill canister with fresh distilled water before each usage. 5. Sleep hygiene with regular time in bed for at least 8 hours. 6. Precautions related to driving. No driving if feel any sleepiness. 7. I will maintain prescription for PAP supplies including mask, tube, filters. 8. Follow up visit in 6 months or earlier if patient has any problems. 9. Watching and losing weight. Thank you very much for allowing me to participate in the management of your patient. Ayan Nelson MD, PhD, FAASM. Diplomat of [place] [employer] of Sleep Medicine, Sleep Medicine Board by [place] [employer] of Internal Medicine Balance Assembler of [facility] [place]
== END ==
LOC: 3 N SLEEP 11:37
PROVIDERS: ATTEND Internal Medicine
DX: G47.33 Obstructive sleep apnea (adult) (pediatric) (principal); E66.9 Obesity, unspecified; I10 Essential (primary) hypertension; Z79.899 Other long term (current) drug therapy; Z90.49 Acquired absence of other specified parts of digestive tract; Z68.35 Body mass index [BMI] 35.0-35.9, adult; Z99.89 Dependence on other enabling machines and devices; Z79.82 Long term (current) use of aspirin
CPT/HCPCS: 99212

== ENCOUNTER → 2023-11-05 | Outpatient (CLI) | payer BC ==
--- NOTE | 2023-11-05 11:19 | CA ---
Stress Echo Report Joshua Guerrero Age: 58 Gender: M : 1965 Exam Date: 11/05/2023 09:33 Exam Location: [place] Stress Ht (in): 72 Wt (lb): 255 Ordering Physician: Brittney Rothman DO Referring Physician: Arianna Vaughn Sheet Rock Sander: [place] Technologist Procedure CPT: Indication: I49.3 VENTRICU PREMATURE DEPOLARI I51.7 HEART DISE ICD-9 Codes: Rhythm: Patient History: Cardiac Medications: AMLODIPINE, POTASSIUM, MULTIVITAMIN, ASPIRIN, WATER PILL Medications in past 24 hours: Contrast: NA Stress Results Protocol: Mason Total dose(mL): NA Exercise Duration (min:sec): 10:[address] Depression (mm): Angina Score: Gant Score: METS: 11.9 Resting HR: 84 Resting BP: 123 / 83 Peak HR: 145 Peak BP: 178 / 84 Max Predicted HR: 164 88 % Max Predicted HR Target HR: 139 Double Product: 59974 Stress Summary: BP Response: Reason for Termination: MAX EXERTION/TARGET HR Cardiac Symptoms: NO SYMPTOMS ECG Analysis Resting ECG: Stress ECG: Arrhythmia: Echo Analysis Resting Echo: Peak Echo Analysis: MEASUREMENTS (Male/Female) Normal Values CONCLUSIONS Diagnosis: Frequent PVCs Hypertension, palpitations, dyslipidemia, family history of smoking for at least 10 years Baseline heart rate 76 beats minute, baseline blood pressure 123/83 mmHg. Baseline twelve-lead EKG shows sinus rhythm with normal ST segments Patient exercised on a Mason protocol for 10 minutes 15 seconds achieving a peak heart rate of 140 beats a minute. Normal blood pressure response [address] depression up until peak exercise which progressed to up to [address] depression during recovery, for almost 5 to 6 minutes Patient remained asymptomatic Baseline 2D echo images showed normal LV size and systolic function At peak exercise there was excellent augmentation of overall LV contractility without development of any wall motion abnormalities At recovery region Global LV Wilbert function may normal Impression good exercise capacity now with normal heart rate and blood pressure response No symptoms No clear-cut echocardiographic evidence for ischemia However while the baseline EKG was completely normal there were ST segment depressions of at least 1 mm or greater during peak exercise that persisted into recovery for at least 5 to 6 minutes Abnormal EKG response with no commensurate echocardiographic wall motion abnormalities Dr. Ralph Regalado MD (Electronically Signed) Final Date: 05 November 2023 11:18
== END | disposition home or self-care (01) ==
LOC: RADNMMAIN 08:57
PROVIDERS: ATTEND Family Medicine
DX: I49.3 Ventricular premature depolarization (principal); I51.9 Heart disease, unspecified; E78.5 Hyperlipidemia, unspecified; R00.2 Palpitations; I10 Essential (primary) hypertension; Z81.2 Family history of tobacco abuse and dependence
CPT/HCPCS: 93351

== ENCOUNTER → 2023-11-11 | Outpatient (CLI) | payer BC ==
[2023-11-11 10:59] VITALS: BP 129/85; PULSE 74; RESP 74; TEMP 97.9
--- NOTE | 2023-11-11 11:14 | P.PROGSL ---
Subjective DATE: 11/11/2023 FOLLOW UP VISIT. Patient with obstructive sleep apnea hypopnea syndrome return to sleep center for follow-up visit. Information from previous visit have been reviewed. Patient is using PAP equipment every night for the whole night, getting PAP supplies in time. The patient does not have significant problems with the mask, PAP unit and humidification. [place] sleepiness scale is 4, which is normal. I checked information from PAP unit. PAP unit pressure 6-14, average 9 cm H2O. Usage is 100% for more then 4 hours, average 7.7 hours per night. Leak is perfect 0 l/m. Apnea Hypopnea Index is perfect 0.7. MEDICATIONS have been reviewed, please see below. During physical exam: GENERAL: A pleasant patient without any distress. VITAL SIGNS: Please see below, weight is 264 lbs. HEENT: PERRLA, EOMI.low position of soft palate, Mallapati 4 . NECK: Supple. No JVD. LUNGS: Clear to percussion and to auscultation. Good air exchange. No wheezing or rhonchi. HEART: S1, S2 regular. ABDOMEN: Soft and nontender.[] EXTREMITIES: No clubbing or cyanosis. ORTHOTIST OR PROSTHETIST: Awake, alert, and oriented x3. No focal deficit. Impressions: 1. Obstructive sleep apnea-hypopnea syndrome. Patient demonstrated great compliance with treatment, benefiting from treatment. 2. Hypertension. 3. Obesity, patient lost 3 pounds comparing with previous visit, present body mass index 34.8. 4. Status post appendectomy. Plan: 1. Continue using PAP equipment every night for the whole night. 2. Sleep hygiene with regular time in bed for at least 7.5-8 hours 3. PAP unit should stay lower then position of the head. 4. Advised patient to remove all remaining water from humidifier canister daily and make it dry after each usage. Refill canister with fresh distilled water before each usage. 5. Watching weight. 6. Precautions related to driving. No driving if feel any sleepiness. 7. I will maintain prescription for PAP supplies including mask, tube, filters. 8. Follow up visit in 8 months or earlier if patient has any problems. Thank you very much for allowing me to participate in the management of your patient. Ayan Nelson MD, PhD, FAASM. Diplomat of [place] Board of Sleep Medicine, Sleep Medicine Board by [place] Board of Internal Medicine Blind Stitch Machine Operator of [facility] [place] Objective - Vital Signs Vital Signs: Vital Signs Temp 97.9 F 11/11/23 10:58 Pulse 74 11/11/23 10:58 Resp 74 H 11/11/23 10:58 BP 129/85 11/11/23 10:58 Pulse Ox 100 11/11/23 10:58 FiO2 Intake & Output 11/10/23 11/11/23 11/11/23 18:59 06:59 18:59 Weight 119.748 kg Home Medications: Home Medications Medication Instructions Recorded Confirmed Type Multivitamins, Thera [Multivitamin 1 tab PO HS 04/04/21 11/11/23 History (formulary)] Aspirin EC [Ecotrin Low Dose] 81 mg PO HS 05/10/21 11/11/23 History amLODIPine BESYLATE/BENAZEPRIL 1 cap PO HS 05/10/21 11/11/23 History [Lotrel 10-40 MG] Chlorthalidone [Hygroton] 25 mg PO DAILY #30 tab 05/11/21 11/11/23 Rx Potassium Chloride ER [K-Dur 10] 10 meq PO DAILY #30 tab 05/11/21 11/11/23 Rx
== END ==
LOC: 3 N SLEEP 10:42
PROVIDERS: ATTEND Internal Medicine
DX: G47.33 Obstructive sleep apnea (adult) (pediatric) (principal); I10 Essential (primary) hypertension; E66.9 Obesity, unspecified; Z98.890 Other specified postprocedural states; Z68.34 Body mass index [BMI] 34.0-34.9, adult; Z99.89 Dependence on other enabling machines and devices; Z79.899 Other long term (current) drug therapy
CPT/HCPCS: 99212

== ENCOUNTER → 2024-07-26 | Outpatient (CLI) | payer BC ==
[2024-07-26 11:53] VITALS: BP 131/79; PULSE 80; RESP 16; TEMP 98
--- NOTE | 2024-07-26 13:47 | P.PROGSL ---
Subjective DATE: 07/26/2024 FOLLOW UP VISIT. Patient with obstructive sleep apnea hypopnea syndrome return to sleep center for follow-up visit. Information from previous visit have been reviewed. Patient is using PAP equipment every night for the whole night, getting PAP supplies in time. The patient does not have significant problems with the mask, PAP unit and humidification. [place] sleepiness scale is 2, which is normal. I checked information from PAP unit. PAP unit pressure 6-14, average 9.6 cm H2O. Usage is 100% for more then 4 hours, average 7.3 hours per night. Leak is 13 l/m, which is in acceptable range. Apnea Hypopnea Index is 2.3, which is normal. MEDICATIONS have been reviewed, please see below. During physical exam: GENERAL: A pleasant patient without any distress. VITAL SIGNS: Please see below, weight is 271 lbs. HEENT: PERRLA, EOMI.low position of soft palate, Mallapati 4 . NECK: Supple. No JVD. LUNGS: Clear to percussion and to auscultation. Good air exchange. No wheezing or rhonchi. HEART: S1, S2 regular. ABDOMEN: Soft and nontender.[] EXTREMITIES: No clubbing or cyanosis. DRUG AND ALCOHOL COUNSELLOR: Awake, alert, and oriented x3. No focal deficit. Impressions: 1. Obstructive sleep apnea-hypopnea syndrome. Patient demonstrated great compliance with treatment, benefiting from treatment. 2. Hypertension. 3. Mild obesity by BMI index 35.7. 4. Status post appendectomy. Plan: 1. Continue using PAP equipment every night for the whole night. 2. Sleep hygiene with regular time in bed for at least 7.5-8 hours 3. PAP unit should stay lower then position of the head. 4. Advised patient to remove all remaining water from humidifier canister daily and make it dry after each usage. Refill canister with fresh distilled water before each usage. 5. Watching weight. 6. Precautions related to driving. No driving if feel any sleepiness. 7. I will maintain prescription for PAP supplies including mask, tube, filters. 8. Follow up visit in 8 months or earlier if patient has any problems. Thank you very much for allowing me to participate in the management of your patient. Ayan Nelson MD, PhD, FAASM. Diplomat of [employer] Sleep Medicine, Sleep Medicine Board by [employer] of Internal Medicine Packing Machine Feeder of [facility] [place] Objective - Vital Signs Vital Signs: Vital Signs Temp 98 F 07/26/24 11:53 Pulse 80 07/26/24 11:53 Resp 16 07/26/24 11:53 BP 131/79 07/26/24 11:53 Pulse Ox 98 07/26/24 11:53 FiO2 Intake & Output 07/25/24 07/26/24 07/26/24 18:59 06:59 18:59 Weight 122.924 kg Home Medications: Home Medications Medication Instructions Recorded Confirmed Type Multivitamins, Thera [Multivitamin 1 tab PO HS 04/04/21 11/11/23 History (formulary)] Aspirin EC [Ecotrin Low Dose] 81 mg PO HS 05/10/21 11/11/23 History amLODIPine BESYLATE/BENAZEPRIL 1 cap PO HS 05/10/21 11/11/23 History [Lotrel 10-40 MG] Chlorthalidone [Hygroton] 25 mg PO DAILY #30 tab 05/11/21 11/11/23 Rx Potassium Chloride ER [K-Dur 10] 10 meq PO DAILY #30 tab 05/11/21 11/11/23 Rx
== END ==
LOC: 3 N SLEEP 11:14
PROVIDERS: ATTEND Internal Medicine
DX: G47.33 Obstructive sleep apnea (adult) (pediatric) (principal); I10 Essential (primary) hypertension; E66.9 Obesity, unspecified; Z98.890 Other specified postprocedural states; Z68.35 Body mass index [BMI] 35.0-35.9, adult; Z99.89 Dependence on other enabling machines and devices
CPT/HCPCS: 99212